=== PATIENT | male | born 1975 | race Caucasian/White ===

== ENCOUNTER 2016-06-21 20:43 | Emergency (ER) | payer OTHER ==
[2016-06-21 21:35] LABS: BASOPHIL % 0.5 % (0-2); PLATELET COUNT 227 x10^3mcL (130-400); RED CELL DISTRIBUTION WIDTH 12.9 % (11.5-14.5)
[2016-06-21 21:41] LABS: CALCIUM 8.9 mg/dL (8.5-10.1); CARBON DIOXIDE 33.7 mmol/L (21-32); CHLORIDE SERUM 107 mmol/L (98-107); GFR1 > 60 mL/min; GLUCOSE SERUM 84 mg/dL (74-106); POTASSIUM SERUM 3.6 mmol/L (3.5-5.1); SODIUM SERUM 145 mmol/L (136-145)
[2016-06-21 21:45] LABS: ALBUMIN 3.8 g/dL (3.4-5.0); ALKALINE PHOSPHATASE 115 U/L (46-116); ALT/SGPT 82 U/L (16-63); AMYLASE 90 U/L (25-115); AST/SGOT 47 U/L (15-37); BILIRUBIN TOTAL 0.23 mg/dL (0.20-1.00); LIPASE 187 IU/L (73-393)
[2016-06-21 21:47] LABS: UA SPECIFIC GRAVITY >=1.030 (1.005-1.035); microscopic required? YES; urine erythrocyte NEGATIVE (NEGATIVE)
[2016-06-22 04:19] VITALS: BP 141/86
== END 2016-06-22 04:19 | disposition home or self-care (01) ==
LOC: ED 20:43
PROVIDERS: Emergency Medicine
DX: N43.3 Hydrocele, unspecified (principal); R10.31 Right lower quadrant pain
CPT/HCPCS: 83880; J1885; J2270; Q0092

== ENCOUNTER 2016-09-02 01:34 | Emergency (ER) | payer OTHER ==
[2016-09-02 05:33] VITALS: BP 133/81
== END 2016-09-02 05:33 | disposition home or self-care (01) ==
LOC: ED 01:34
DX: M54.5 Low back pain (principal); N43.3 Hydrocele, unspecified
CPT/HCPCS: J1885; J2270; Q0092

== ENCOUNTER 2016-09-23 01:19 | Emergency (ER) | payer OTHER ==
[2016-09-23 02:44] VITALS: BP 140/86
== END 2016-09-23 02:44 | disposition home or self-care (01) ==
LOC: ED 01:19
DX: N43.3 Hydrocele, unspecified (principal); Z90.49 Acquired absence of other specified parts of digestive tract; Z98.890 Other specified postprocedural states
CPT/HCPCS: J1170